=== PATIENT | female | born 1990 | race Caucasian/White ===

== ENCOUNTER 2018-04-18 11:30 | Inpatient (IN) | payer OTHER ==
[~2018-04-18] VITALS: Ht 162.6 cm; Wt 74.8 kg
[2018-05-19] MEDS ORDERED: PRENATAL FORMU1 EAC1 PO (23:23)
== END 2018-05-22 11:42 | disposition home or self-care (01) | DRG 768 ==
LOC: OB/GYN 11:30 → LDR 05-19 23:19 → SURG-SUITE 05-20 12:03
PROC: 4A1HXCZ Monitoring of Products of Conception, Cardiac Rate, External Approach (ICD-10-PCS; 2018-05-19)
PROC: 10E0XZZ Delivery of Products of Conception, External Approach (ICD-10-PCS; principal; 2018-05-20)
PROC: 0DQP0ZZ Repair Rectum, Open Approach (ICD-10-PCS; 2018-05-20)
PROC: 0W8NXZZ Division of Female Perineum, External Approach (ICD-10-PCS; 2018-05-20)
PROC: 4A033R1 Measurement of Arterial Saturation, Peripheral, Percutaneous Approach (ICD-10-PCS; 2018-05-20)
DX: O70.3 Fourth degree perineal laceration during delivery (principal); Z37.0 Single live birth; Z3A.40 40 weeks gestation of pregnancy

== ENCOUNTER 2018-05-09 11:35 | Outpatient (CLI) | payer OTHER | END 2018-05-09 12:17 | disposition home or self-care (01) | LOC: NST 11:35 | DX: Z34.03 Encounter for supervision of normal first pregnancy, third trimester (principal) ==